=== PATIENT | female | born 1965 ===

== ENCOUNTER 2025-06-05 16:16 | Day surgery (SDC) | payer BC, SELFPAY ==
[2025-06-05] VITALS (7 sets, daily range): BP systolic 141–167; BP diastolic 71–91
--- NOTE | 2025-06-05 15:20 | CON.GI ---
Addendum entered and electronically signed by Gerard Meza DO 06/05/25 16:50:
I saw and examined the patient.
The LAUNDRY AIDE's note was reviewed and I agree with the note.
Comment: Ms. Iglesias is a 60 y.o female with past medical history as outlined below and notable for EoE (s/p prior dilations, no longer on PPI- self-discontinued) who presents to the ED with symptoms consistent with a food impaction. Would benefit
from a repeat EGD along with repeat biopsies to assess for EoE especially since she has been OFF PPI for the past 3-4 months. See same day EGD report for additional findings and recommendations. Rest of care as outlined below.
Original Note:
Consultation
-
Date/Time Consultation Requested: 06/05/25 1530
Date/Time Consultation Performed: 06/05/25 1540
Requesting Provider: Casey Sellers DO
Performing Provider: ANH Samuel, Gerard Meza DO
Reason for Consultation: food impaction
Medical History
Chief Complaint / HPI
History of Present Illness:
Pt is 60yo presents with hx eosinophilic esophagitis with prior dilations though not noted on 2022 bx, schatzki's ring, psoriasis on Cosentyx, asthma, afib tach, renal stones, prior appe, precious presents with concern for food impaction. Pt has taken
Fluticasone in past but has been off for some time and maintained on Omeprazole. Pt admits to stopping Omeprazole about 4 months ago due to low mag level and concern as mother with dementia. She had recent strep with + culture and antibiotic
treatment and noted some slight whitish debris on tongue. She then noted occasional dysphagia and today ate chicken wrap for lunch with feeling of food impaction similar to symptoms in past. In ER noted with inability to control secretion with
tissue with mucous in bag. She also admits to chest pain and mild odynophagia with symptoms. Pt also with some chronic intermittent diarrhea. Pt otherwise denies GERD, nausea, vomiting, abdominal pain, constipation, blood or black in stools. Pt
denies anticoagulation, GPI 1 use. Last EGD 2022- [facility] - changes of EOE, mucosal nodule, patent Schatzki's ring, small HH, erythema in stomach, gastric polyps, duodenal nodule tattooed, bx mild chronic gastritis, fundic gland polyps sb with
lymphangiectasia possible gluten sensitive enteropathy, seen with NSAID, H pylori or viral gastroenteritis no EOE seen. colon 2022 normal IH, grandularity in rectum. neg lymphocytic colitis.
Past Medical History
Past Medical History: Other (eosinophilic esophagitis with prior dilations though not noted on 2022 bx, schatzki's ring, psoriasis, asthma, afib tach, renal stones)
Past Surgical History: Appendectomy and Cholecystectomy
Social History
Tobacco: Non-Smoker
Alcohol: Occasional
Drug: None
Personal:
Living: With Family
Employment: Retired
Family History
Family History: Other (mother with dementia )
Allergies / Home Medications
Allergy/AdvReac Type Severity Reaction Status Date / Time
iron dextran complex Allergy Severe Swelling Verified 06/05/25 14:55
prochlorperazine (From Allergy Intermediate Unknown Verified 06/05/25 14:55
Compazine)
carisoprodol (From Soma) Allergy Mild Rash Verified 06/05/25 14:55
Review of Systems
-
History Source: Patient and Family
Constitutional: Reports No Symptoms
EENT: Reports Other (dysphagia with feeling of food sticking and inability to control secretions )
Respiratory: Reports No Symptoms
Cardiac: Reports Chest Pain (with food impaction)
Abdomen/GI: Reports Vomiting (secretions ) and Diarrhea
: Reports No Symptoms
Musculoskeletal: Reports No Symptoms
Skin: Reports No Symptoms
Neurological: Reports Weakness
Endocrine: Reports No Symptoms
Hematologic/Lymphatic: Reports No Symptoms
Vital Signs
Temp Pulse Resp BP Pulse Ox
98.9 F 60 16 164/91 98
06/05/25 14:56 06/05/25 14:56 06/05/25 14:56 06/05/25 14:56 06/05/25 14:56
Physical Exam
Exam
General: Well Developed, Well Nourished and No Apparent Distress
HEENT: Normocephalic, Anicteric and Other (small amount of whitish debris on tongue)
Respiratory: Clear
Cardiac: Regular Rhythm
GI: Soft, Non Tender and Non Distended
Musculoskeletal: No Clubbing and No Cyanosis
Skin: Warm and Dry
Neuro: Awake, Alert and AO x 3
Psych: Calm
Results
Diagnostic Image Results:
Prior GI Procedures:
EGD: 2022- [facility] - changes of EOE, mucosal nodule, patent Schatzki's ring, small HH, erythema in stomach, gastric polyps, duodenal nodule tattooed, bx mild chronic gastritis, fundic gland polyps sb with lymphangiectasia possible gluten sensitive
enteropathy, seen with NSAID, H pylori or viral gastroenteritis no EOE seen.
Colonoscopy:[facility] 2022 normal IH, grandularity in rectum. neg lymphocytic colitis.
Assessment / Plan
-
Pt is 60yo presents with hx eosinophilic esophagitis with prior dilations though not noted on 2022 bx, schatzki's ring, psoriasis on Cosentyx, asthma, afib tach, renal stones, prior appe, precious presents with concern for food impaction. Pt has taken
Fluticasone in past but has been off for some time and maintained on Omeprazole. Pt admits to stopping Omeprazole about 4 months ago due to low mag level and concern as mother with dementia. She had recent strep with + culture and antibiotic
treatment and noted some slight whitish debris on tongue. She then noted occasional dysphagia and today ate chicken wrap for lunch with feeling of food impaction similar to symptoms in past. In ER noted with inability to control secretion with
tissue with mucous in bag. She also admits to chest pain and mild odynophagia with symptoms. Pt also with some chronic intermittent diarrhea. Pt otherwise denies GERD, nausea, vomiting, abdominal pain, constipation, blood or black in stools. Pt
denies anticoagulation, GPI 1 use. Last EGD 2022- [facility] - changes of EOE, mucosal nodule, patent Schatzki's ring, small HH, erythema in stomach, gastric polyps, duodenal nodule tattooed, bx mild chronic gastritis, fundic gland polyps sb with
lymphangiectasia possible gluten sensitive enteropathy, seen with NSAID, H pylori or viral gastroenteritis no EOE seen. colon 2022 normal IH, grandularity in rectum. neg lymphocytic colitis.
-concern for food impaction
-whitish debris on tongue ? thrush/esophageal candidiasis
-hx EOE/schatzki's ring -- stopped Omeprazole 4 months ago
-recent streph throat bx+
-psoriasis on chronic Cosentyx
other med problem:
asthma, afib tach, renal stones, prior appe, precious
PLAN:
plan for EGD today to eval for food bolus, jeni vs other
discussed restarted PPI
OP follow up with Dr. Rodarte
further recs per Dr. Meza post EGD
NPO-- last mean 1 pm lunch
family and ER updated
-
-
Thank you for consultation and allowing me to participate in the patient's care. Please call the pesticide control inspector GI physician during the after hours with any questions or concerns.
--- NOTE | 2025-06-05 15:26 | EDRN ---
GI CARD PROCESSING CLERK to bedside.
--- NOTE | 2025-06-05 15:46 | ED.GENMED ---
History of Present Illness
General
Chief Complaint: Esophageal Problem
Source: patient
Exam Limitations: none
Time Seen by Provider: 06/05/25 15:13
Nursing documentation reviewed up to this point in time: agreed with
History of Present Illness
History of Present Illness:
Patient to the emergency department for evaluation of suspected esophageal food impaction. She states she was eating chicken earlier today and felt a piece become lodged in her esophagus. For period time she was unable to tolerate her own
secretions. She denies any difficulty breathing. At this time patient reports the impaction sensation however she is able to swallow secretions. She contacted her hog confinement system manager and was advised to come to the emergency department.
Past History
Past History
ED Past Medical History: Arrthythmia (Paroxysmal atrial tachycardia), Hypercholesterolemia and Other (Eosinophilic esophagitis, psoriasis)
ED Past Surgical History: Appendectomy, Cholecystectomy and Other (Esophageal dilation)
Review of Systems
Review of Systems
Allergies reviewed?: Yes
All Other Systems: ROS reviewed and negative except as documented in HPI and ROS
Constitutional: Reports no symptoms
EENT: Reports other (Suspected esophageal food impaction)
Respiratory: Reports no symptoms
Cardiac: Reports no symptoms
ABD/GI: Reports other (Suspected esophageal food impaction)
: Reports no symptoms
Musculoskeletal: Reports no symptoms
Skin: Reports no symptoms
Neurological: Reports no symptoms
Psychiatric: Reports no symptoms
Phy Exam
General Physical Exam
General Presentation: well appearing and no apparent distress
General age: appears stated age
General Skin: warm
General Habitus: normal
Pulmonary Exam
Pulmonary Exam: lungs clear and no respiratory distress
Gastrointestinal Exam
Gastrointestinal Exam: non tender and soft
Musculoskeletal Exam
Musculoskeletal Exam: full ROM and neuro vasc intact
Skin Exam
Skin Exam: normal color, warm/dry and no rash
Psychiatric Exam
Psychiatric Exam: normal mood/affect
Course
Vital Signs
Initial and Last Documented VS:
Initial Vital Signs
Temp Pulse Resp BP Pulse Ox
98.9 F 60 16 164/91 98
06/05/25 14:56 06/05/25 14:56 06/05/25 14:56 06/05/25 14:56 06/05/25 14:56
Last Documented Vital Signs
Temp Pulse Resp BP Pulse Ox
98.9 F 60 16 164/91 98
06/05/25 14:56 06/05/25 14:56 06/05/25 14:56 06/05/25 14:56 06/05/25 14:56
*Pulse Oximetry
SaO2: 98
Oxygen Mode of Delivery: Room air
Patient hypoxic: no
*Critical Care Note
Total Time (30-74mins, 75-104mins- exclusive of procedures): Not Applicable
Update Note
Update Note:
Patient to the emergency department for evaluation of suspected esophageal food impaction. States she was eating chicken earlier today and felt like a piece of the chicken did not pass. She has had this issue in the past and states her symptoms
today are the same as prior. Initially she was unable to handle her secretions with spitting up into a bag. Now states that although the sensation of the impaction is still present she is able to swallow her saliva. She spoke to her
hog confinement system manager by phone and was advised to come to the ED. On arrival to ED she is awake alert and oriented, in no distress. No difficulty with breathing lungs are clear to auscultation. She was evaluated in the ED by GI SELECTOR PACKER and was discharged
to the GI lab for removal of foreign body.
ED Attending Note
-
Portions of this chart may have been created with voice recognition software.� Occasional wrong word or��sound alike� substitutions may have occurred due to the inherent limitations of voice recognition software.
Discharge Plan
Departure
Patient Disposition: GI LAB
Date of Disposition: 06/05/25
Time of Disposition: 15:45
Presentation/result/management discussed w/ accepting MD/DO: Dr. Meza
Patient with high blood pressure during this ER visit?: No
Condition: Good
Covid-19: Not Applicable
Discharge Problem:
Food impaction of esophagus
Interventions
Interventions:
*Risk Screen - Suicide Last Done: 06/05/25 14:56
*Neglect/Abuse Screening Last Done: 06/05/25 14:56
EG-Bbywvt-[id number] Assessment Last Done: 06/05/25 15:22
Discharge Date and Time
Print Language: ZAMBIAN
== END 2025-06-05 18:28 | disposition home or self-care (01) ==
LOC: SDS 16:16
PROVIDERS: EMERGENCY PHYSICIAN Student in an Organized Health Care Education/Training Program; FAMILY PHYSICIAN Family Medicine
DX: T18.108A Unspecified foreign body in esophagus causing other injury, initial encounter (principal); T18.128A Food in esophagus causing other injury, initial encounter; T18.2XXA Foreign body in stomach, initial encounter; T18.3XXA Foreign body in small intestine, initial encounter; W44.F3XA Food entering into or through a natural orifice, initial encounter; K20.0 Eosinophilic esophagitis; R13.10 Dysphagia, unspecified; K22.89 Other specified disease of esophagus
CPT/HCPCS: 43247; 43239; 88305; 99285